=== PATIENT | male | born 1940 | race African-American/Black ===

== ENCOUNTER 2021-06-09 07:54 | Inpatient (IN) | payer MEDICARE, OTHER ==
[~2021-06-09] VITALS: Ht 170.2 cm; Wt 63.1 kg
[2021-06-09] MEDS ORDERED: TETANUS, DIPHTHERIA, PERTUSSIS VAC/PF 0.5ML (>10YR OLD) IM ONE (08:15)
[2021-06-09 08:38] LABS: HEMATOCRIT. 39.6 % (42.0-52.0); HEMOGLOBIN. 12.9 g/dL (14.0-18.0); MEAN CORPUSCULAR VOLUME 89.2 fL (80.0-94.0); MEAN PLATELET VOLUME 8.3 fl (7.4-10.4); PLATELET 217 x1000/uL (130-400); RED BLOOD CELL COUNT 4.44 mill/uL (4.7-6.1); RED CELL DISTRIBUTION WIDTH 15.5 % (11.6-14.6)
[2021-06-09 08:44] LABS: CHLORIDE 106 mEq/L (98-107)
[2021-06-09 08:47] LABS: INR 0.9
[2021-06-09 08:48] LABS: ETHANOL BLOOD < 10 mg/dL
[2021-06-09 09:54] LABS: PLATELET ESTIMATE NORMAL
[2021-06-09] MEDS ORDERED: IPRATROPIUM/ALBUTEROL 0.5-3(2.5)MG/3ML NEB HHN PRN (14:00)
[2021-06-09] MEDS ORDERED: DIPHENHYDRAMINE 50MG/ML VIAL IV PRN (14:00)
[2021-06-09] MEDS ORDERED: ONDANSETRON HCL 4MG/2ML INJ IV PRN (14:00)
[2021-06-09] MEDS ORDERED: ACETAMINOPHEN 325MG TABLET PO PRN (14:00)
[2021-06-09] MEDS: CLONIDINE 0.1MG TABLET PO PRN (14:24)
[2021-06-09 15:32] LABS: CLARITY URINE CLOUDY (CLEAR); COLOR URINE YELLOW (YELLOW); KETONES URINE TRACE (NEGATIVE); LEUKOCYTE ESTERASE URINE NEGATIVE (NEGATIVE); NITRITE URINE NEGATIVE (NEGATIVE); OCCULT BLOOD URINE TRACE (NEGATIVE); PH URINE 5.5 (4.5-8.0); PROTEIN URINE NEGATIVE (NEGATIVE); SPECIFIC GRAVITY URINE 1.012 (1.005-1.030)
[2021-06-09] MEDS: HYDRALAZINE 20MG/ML VIAL IV PRN ×2 (17:35→17:40)
[2021-06-09 20:00] VITALS: BP 119/61
[2021-06-10] VITALS: BP 165/98
[2021-06-10] MEDS: CLONIDINE 0.1MG TABLET PO PRN (02:49)
[2021-06-10 04:00] VITALS: BP 108/65
[2021-06-10 04:27] VITALS: BP 152/83
[2021-06-10 07:18] LABS: CHLORIDE 106 mEq/L (98-107); HEMATOCRIT. 41.2 % (42.0-52.0); HEMOGLOBIN. 13.5 g/dL (14.0-18.0); MEAN CORPUSCULAR HEMOGLOBIN 29.2 pg (28.0-32.0); MEAN CORPUSCULAR VOLUME 89.1 fL (80.0-94.0); MEAN PLATELET VOLUME 8.9 fl (7.4-10.4); PLATELET 221 x1000/uL (130-400); RED BLOOD CELL COUNT 4.62 mill/uL (4.7-6.1); RED CELL DISTRIBUTION WIDTH 15.1 % (11.6-14.6)
[2021-06-10 07:29] LABS: LDL CHOLESTEROL 70 mg/dL (5-100)
[2021-06-10 07:30] LABS: HDL CHOLESTEROL 97 mg/dL (40-59)
[2021-06-10 08:00] VITALS: BP 131/74
[2021-06-10] MEDS: SODIUM CHLORIDE 0.9% 1,000 ML IV SCH (08:15)
[2021-06-10] MEDS ORDERED: AMLODIPINE 5MG TABLET PO SCH (09:00)
[2021-06-10] MEDS ORDERED: ENOXAPARIN 80MG/0.8ML SYR SUBCUT SCH (15:00)
[2021-06-10 16:00] VITALS: BP 153/78
[2021-06-10 20:00] VITALS: BP 138/87
[2021-06-11] VITALS (46 sets, daily range): BP systolic 60–148; BP diastolic 37–91
[2021-06-11] MEDS: SODIUM CHLORIDE 0.9% 1,000 ML IV SCH ×2 (01:56→16:54)
[2021-06-11 07:38] LABS: PLATELET ESTIMATE NORMAL
[2021-06-11 08:00] LABS: CHLORIDE 112 mEq/L (98-107)
[2021-06-11 08:08] LABS: PHOSPHORUS 3.1 mg/dL (2.5-4.9)
[2021-06-11 08:10] LABS: HEMATOCRIT. 39.8 % (42.0-52.0); HEMOGLOBIN. 13.1 g/dL (14.0-18.0); MEAN CORPUSCULAR HEMOGLOBIN 29.2 pg (28.0-32.0); MEAN CORPUSCULAR VOLUME 89.1 fL (80.0-94.0); MEAN PLATELET VOLUME 8.5 fl (7.4-10.4); PLATELET 200 x1000/uL (130-400); RED BLOOD CELL COUNT 4.47 mill/uL (4.7-6.1)
[2021-06-11 08:11] LABS: CREATINE KINASE 248 IU/L (39-308)
[2021-06-11] MEDS ORDERED: AMLODIPINE 5MG TABLET PO SCH (09:00)
[2021-06-11 09:15] LABS: BG BASE EXCESS -1.5 mmol/L (-2.0-2.0); BG CARBOXYHEMOGLOBIN 1.2 % (0.5-1.5); BG FRACTION INSPIRED OXYGEN 100; BG HCO3 ACT 22.1 mmol/L (22.0-26.0); BG METHEMOGLOBIN 0.2 % (0.0-1.5); BG OXYHEMOGLOBIN 98.6 % (94.0-97.0); BG PCO2 33.9 mmHg (35.0-45.0); BG PH 7.432 (7.350-7.450); BG PO2 369.6 mmHg (75.0-100.0); BG SAMPLE SITE LEFT BRACHIAL; BG TOTAL HEMOGLOBIN 14.1 g/dL (12.0-18.0); BG VENT MODE MASK - NRB
[2021-06-11] MEDS ORDERED: NOREPINEPHRINE 32 MG in DEXT 5% WATER 218 ML IV PRN (09:15)
[2021-06-11] MEDS: THIAMINE HCL 100MG TABLET PO SCH (13:38)
[2021-06-11] MEDS: ENOXAPARIN 80MG/0.8ML SYR SUBCUT SCH (13:39)
[2021-06-11 14:11] LABS: PLATELET ESTIMATE NORMAL
[2021-06-11] MEDS ORDERED: LORAZEPAM 2MG/ML CPJ IV PRN (19:45)
[2021-06-11] MEDS: CHLORDIAZEPOXIDE 5 MG CAPSULE PO SCH (21:32)
[2021-06-12] VITALS (25 sets, daily range): BP systolic 114–178; BP diastolic 65–105
[2021-06-12] MEDS: ENOXAPARIN 80MG/0.8ML SYR SUBCUT SCH ×3 (01:30→17:17)
[2021-06-12] MEDS: SODIUM CHLORIDE 0.9% 1,000 ML IV SCH (02:09)
[2021-06-12 06:02] LABS: BASOPHILS % 0.2 % (0.0-2.0); EOSINOPHILS % 0.4 % (0.0-5.0); HEMATOCRIT. 36.9 % (42.0-52.0); LYMPHOCYTES % 8.1 % (20.0-50.0); MEAN CORPUSCULAR HEMOGLOBIN 29.5 pg (28.0-32.0); MEAN CORPUSCULAR VOLUME 90.8 fL (80.0-94.0); MONOCYTES % 9.4 % (2.0-8.0); NEUTROPHILS % 81.9 % (40.0-76.0); PLATELET 179 x1000/uL (130-400); RED BLOOD CELL COUNT 4.06 mill/uL (4.7-6.1)
[2021-06-12 06:15] LABS: CHLORIDE 114 mEq/L (98-107)
[2021-06-12 06:25] LABS: PHOSPHORUS 2.5 mg/dL (2.5-4.9)
[2021-06-12 07:09] LABS: *CREATININE RANDOM URINE 98.6 mg/dL (Not Estab.); MICROALBUMIN RANDOM URINE 142.9 ug/mL (Not Estab.)
[2021-06-12] MEDS: THIAMINE HCL 100MG TABLET PO SCH (09:58)
[2021-06-12] MEDS: CHLORDIAZEPOXIDE 5 MG CAPSULE PO SCH ×2 (10:00→20:15)
[2021-06-12 10:08] LABS: A/G RATIO 0.9 (0.7-1.7); ALBUMIN 2.8 g/dL (2.9-4.4); ALPHA-1-GLOBULIN 0.3 g/dL (0.0-0.4); ALPHA-2-GLOBULIN 0.9 g/dL (0.4-1.0); BETA GLOBULIN 0.8 g/dL (0.7-1.3); M-SPIKE Not Observed g/dL (Not Observed); TOTAL PROTEIN SERUM 5.8 g/dL (6.0-8.5)
[2021-06-12] MEDS: PANTOPRAZOLE SODIUM 40 MG/VIAL IV SCH (17:16)
[2021-06-12] MEDS: DEXAMETHASONE 10 MG/ML VIAL IV SCH ×2 (17:16→23:22)
[2021-06-12] MEDS: AMLODIPINE 5MG TABLET PO SCH (17:18)
[2021-06-12 20:33] LABS: CREATINE KINASE MB FRACTION 3.8 ng/mL (0.5-3.6)
[2021-06-13] VITALS (12 sets, daily range): BP systolic 103–164; BP diastolic 67–106
[2021-06-13] MEDS: ENOXAPARIN 80MG/0.8ML SYR SUBCUT SCH (04:10)
[2021-06-13] MEDS: DEXAMETHASONE 10 MG/ML VIAL IV SCH ×3 (05:02→17:16)
[2021-06-13 06:22] LABS: HEMATOCRIT. 36.3 % (42.0-52.0); HEMOGLOBIN. 11.6 g/dL (14.0-18.0); MEAN CORPUSCULAR HEMOGLOBIN 29.2 pg (28.0-32.0); MEAN CORPUSCULAR VOLUME 91.4 fL (80.0-94.0); PLATELET 181 x1000/uL (130-400); RED BLOOD CELL COUNT 3.97 mill/uL (4.7-6.1); RED CELL DISTRIBUTION WIDTH 14.5 % (11.6-14.6)
[2021-06-13 06:32] LABS: CHLORIDE 111 mEq/L (98-107)
[2021-06-13 06:44] LABS: PHOSPHORUS 2.9 mg/dL (2.5-4.9)
[2021-06-13 06:46] LABS: CREATINE KINASE 255 IU/L (39-308)
[2021-06-13] MEDS: AMLODIPINE 5MG TABLET PO SCH (09:03)
[2021-06-13] MEDS: THIAMINE HCL 100MG TABLET PO SCH (09:03)
[2021-06-13] MEDS: CHLORDIAZEPOXIDE 5 MG CAPSULE PO SCH ×2 (09:03→22:12)
[2021-06-13] MEDS: PANTOPRAZOLE SODIUM 40 MG/VIAL IV SCH (09:04)
[2021-06-13] MEDS: ENOXAPARIN 60MG/0.6ML SYR SUBCUT SCH (16:36)
[2021-06-13 16:50] LABS: HEMATOCRIT 37.5 % (42.0-52.0); HEMOGLOBIN 11.9 g/dL (14.0-18.0)
[2021-06-13 17:06] LABS: ATYPICAL P-ANCA <1:20 titer (Neg:<1:20); CYTOPLASMIC C-ANCA <1:20 titer (Neg:<1:20); PERINUCLEAR P-ANCA <1:20 titer (Neg:<1:20)
[2021-06-13 17:23] LABS: PLATELET ESTIMATE NORMAL
[2021-06-13] MEDS: SODIUM CHLORIDE 0.9% 1,000 ML IV SCH (18:43)
[2021-06-13] MEDS: FAMOTIDINE 20MG TABLET PO SCH (22:12)
[2021-06-13] MEDS: DEXAMETHASONE 4MG/ML 1ML VIAL IV SCH (22:41)
[2021-06-14] VITALS (13 sets, daily range): BP systolic 122–161; BP diastolic 65–99
[2021-06-14] MEDS: DEXAMETHASONE 4MG/ML 1ML VIAL IV SCH ×3 (05:48→20:54)
[2021-06-14] MEDS: ENOXAPARIN 60MG/0.6ML SYR SUBCUT SCH ×2 (05:48→18:49)
[2021-06-14 07:06] LABS: HEMATOCRIT. 36.2 % (42.0-52.0); HEMOGLOBIN. 11.3 g/dL (14.0-18.0); MEAN CORPUSCULAR HEMOGLOBIN 29.6 pg (28.0-32.0); MEAN CORPUSCULAR VOLUME 95.1 fL (80.0-94.0); MEAN PLATELET VOLUME 9.2 fl (7.4-10.4); PLATELET 177 x1000/uL (130-400); RED BLOOD CELL COUNT 3.81 mill/uL (4.7-6.1); RED CELL DISTRIBUTION WIDTH 14.9 % (11.6-14.6)
[2021-06-14 07:45] LABS: CHLORIDE 108 mEq/L (98-107)
[2021-06-14 08:00] LABS: PHOSPHORUS 2.5 mg/dL (2.5-4.9)
[2021-06-14] MEDS: FAMOTIDINE 20MG TABLET PO SCH ×2 (08:07→20:54)
[2021-06-14] MEDS: CHLORDIAZEPOXIDE 5 MG CAPSULE PO SCH ×2 (08:08→20:55)
[2021-06-14] MEDS: AMLODIPINE 5MG TABLET PO SCH ×3 (08:10→20:55)
[2021-06-14] MEDS: THIAMINE HCL 100MG TABLET PO SCH (08:10)
[2021-06-14] MEDS ORDERED: FAMOTIDINE 20MG/2ML VIAL IV SCH (09:00)
[2021-06-14 13:11] LABS: ANTI-MYELOPEROXIDASE AB < 9.0 U/mL (0.0-9.0)
[2021-06-14 15:56] LABS: PLATELET ESTIMATE NORMAL
[2021-06-15] VITALS: BP 158/97
[2021-06-16 13:10] LABS: ANTI-PROTEINASE 3 ABS < 3.5 U/mL (0.0-3.5)
== END 2021-06-14 22:30 | disposition short-term general hospital (02) | DRG 604 ==
LOC: ER 07:54 → 6EST 09:53 → ENRESERV 19:43 → MICUNO 06-11 09:44 → 5EST 06-12 14:17
PROVIDERS: ADMIT Internal Medicine; ATTEND Internal Medicine
DX: S00.03XA Contusion of scalp, initial encounter (principal); I26.09 Other pulmonary embolism with acute cor pulmonale; G82.50 Quadriplegia, unspecified; S14.0XXA Concussion and edema of cervical spinal cord, initial encounter; N17.9 Acute kidney failure, unspecified; N13.30 Unspecified hydronephrosis; I50.30 Unspecified diastolic (congestive) heart failure; I82.412 Acute embolism and thrombosis of left femoral vein; I82.4Y2 Acute embolism and thrombosis of unspecified deep veins of left proximal lower extremity; G95.89 Other specified diseases of spinal cord; I95.9 Hypotension, unspecified; G90.8 Other disorders of autonomic nervous system; R62.7 Adult failure to thrive; I16.0 Hypertensive urgency; I25.10 Atherosclerotic heart disease of native coronary artery without angina pectoris; F10.20 Alcohol dependence, uncomplicated; G89.29 Other chronic pain; I11.0 Hypertensive heart disease with heart failure; I27.21 Secondary pulmonary arterial hypertension; R31.9 Hematuria, unspecified; Z20.822 Contact with and (suspected) exposure to COVID-19; M48.02 Spinal stenosis, cervical region; W01.0XXA Fall on same level from slipping, tripping and stumbling without subsequent striking against object, initial encounter; Z86.73 Personal history of transient ischemic attack (TIA), and cerebral infarction without residual deficits; Z79.899 Other long term (current) drug therapy; Z68.21 Body mass index [BMI] 21.0-21.9, adult; Y93.89 Activity, other specified; Y92.89 Other specified places as the place of occurrence of the external cause; Y99.8 Other external cause status; E80.6 Other disorders of bilirubin metabolism
CPT/HCPCS: 36415; 36600; 71045; 72141; 72146; 72148; 74176; 76700; 76770; 78580; 80048; 80053; 80061; 80320; 81003; 82043; 82248; 82375; 82378; 82550; 82553; 82570; 82805; 82962; 83520; 83735; 83880; 83935; 84100; 84134; 84145; 84153; 84155; 84165; 84300; 84443; 84484; 85014; 85018; 85025; 86256; 87426; 90715; 92610; 93005; 93306; 93970; 99285; C9113; J0360; J1100; J1650; J2060; J7030; J7070; L0172; A4315; G0103; G0480